=== PATIENT | female | born 1985 | race Caucasian/White ===

== ENCOUNTER 2016-10-31 10:39 | Emergency (ER) | payer OTHER | END 2016-10-31 12:46 | disposition home or self-care (01) | DX: S46.911A Strain of unspecified muscle, fascia and tendon at shoulder and upper arm level, right arm, initial encounter (principal); W10.9XXA Fall (on) (from) unspecified stairs and steps, initial encounter ==

== ENCOUNTER 2016-11-27 15:22 | Outpatient (CLI) | payer OTHER | END 2016-11-27 15:23 | disposition home or self-care (01) | DX: S43.421A Sprain of right rotator cuff capsule, initial encounter (principal); W01.0XXA Fall on same level from slipping, tripping and stumbling without subsequent striking against object, initial encounter ==

== ENCOUNTER 2017-05-27 21:29 | Emergency (ER) | payer OTHER ==
--- NOTE | 2017-05-27 22:15 | ED Physician Documentation ---
PD HPI SKIN - Stated complaint Stated Complaint: RED/SWOLLEN LT BREAST - Chief complaint Chief Complaint: General - History obtained from History obtained from: Patient - History of Present Illness Timing - onset: How many days ago (4) Timing - duration: Days Timing - details: Gradual onset, Still present (worse today) Location: Chest (left medial breast) Quality / character: Painful, Discolored (red), Swelling. 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 and gets clogged sweat glands leading to infections.) Review of Systems Constitutional: denies: Fever, Chills, Myalgias GI: denies: Nausea, Vomiting PD PAST MEDICAL HISTORY - Past Medical History Past Medical History: No - Past Surgical History Past Surgical History: Yes - Present Medications Home Medications: Ambulatory Orders Medication Instructions Recorded Confirmed Doxycycline Hyclate 100 mg PO BID #14 tablet 05/27/17 Ibuprofen [Motrin] 600 mg PO TID #20 tab 05/27/17 metFORMIN [Glucophage] 500 mg PO BID 05/27/17 05/27/17 - Allergies Allergies/Adverse Reactions: Allergies Allergy/AdvReac Type Severity Reaction Status Date / Time Penicillins Allergy Unknown Verified 05/27/17 21:41 Sulfa (Sulfonamide Allergy Unknown Verified 05/27/17 23:01 Antibiotics) - Social History Does the pt smoke?: No Smoking Status: Never smoker Does the pt drink ETOH?: No Does the pt have substance abuse?: No - Immunizations Immunizations are current?: Yes PD ED PE NORMAL - Vitals Vital signs reviewed: Yes - General General: Alert and oriented X 3, Well developed/nourished - Neck Neck: Supple, no meningeal sign, No adenopathy - Cardiac Cardiac: RRR, No murmur - Respiratory Respiratory: Clear bilaterally - Derm Derm: Other (left breast at medial edge of areola with focal area of induration , redness, swelling. Bedside U/S shows small fluid collection about 6 mm. ) Results - Vitals Vitals: Oxygen O2 Source Room air PD MEDICAL DECISION MAKING - ED course Complexity details: considered differential (bedside U/S showed 6 mm fluid collection but I&D produced only about 2-3 drops of bloody/pus. ), d/w patient Departure - Departure Disposition: Home, Self Care Clinical Impression: Breast abscess Condition: Stable Record reviewed to determine appropriate education?: Yes Instructions: ED Abscess IandD Follow-Up: SOTO VERA [Primary Care Provider] - Prescriptions: Doxycycline Hyclate 100 mg PO BID #14 tablet Ibuprofen [Motrin] 600 mg PO TID #20 tab Comments: Warm moist compresses to the area several times a day. Allow to drain and cover with gauze. Doxycycline twice a day for a week for the infection. Ibuprofen 3 times a day as needed for pain. Follow-up with your primary care if not improved over the next few days. Discharge Date/Time: 05/27/17 23:01
[2017-05-27] MEDS ORDERED: IBUPROFEN 600 MG TABLET PO STA (22:35)
[2017-05-27] MEDS ORDERED: SULFAMETH/TRIMETH DS 800/160 MG TABLET PO STA (22:35)
[2017-05-27] MEDS ORDERED: SULFAMETH/TRIMETH DS 800/160 MG TABLET PO ONE (22:41)
[2017-05-27] MEDS ORDERED: IBUPROFEN 600 MG TABLET PO ONE (22:41)
[2017-05-27] MEDS ORDERED: DOXYCYCLINE 100 MG TABLET PO STA (22:52)
[2017-05-27] MEDS ORDERED: DOXYCYCLINE 100 MG TABLET PO ONE (22:57)
[2017-05-27 23:02] VITALS: BP 133/76
== END 2017-05-27 23:01 | disposition home or self-care (01) ==
LOC: ED 21:29
DX: N61.1 Abscess of the breast and nipple (principal)
CPT/HCPCS: 10060; 99283; A9270

== ENCOUNTER 2018-02-16 10:18 | Emergency (ER) | payer OTHER ==
--- NOTE | 2018-02-16 11:37 | ED Physician Documentation ---
PD HPI OPHTHO - Stated complaint Stated Complaint: R EYE PX - Chief complaint Chief Complaint: Heent - History obtained from History obtained from: Patient - History of Present Illness Timing - onset: How many days ago (2-3) Timing - duration: Days (2-3) Timing - details: Gradual onset Location: Right Quality / character: Other (aching) Associated symptoms: Redness, Swelling (lower lid, with expanding redness the past day, down into the lower eyelid.) Contributing factors: No: Exposed to conjunctivitis, Recent URI, Wears contacts Similar symptoms before: Has not had sx before Recently seen: Not recently seen Review of Systems Constitutional: denies: Fever, Chills Eyes: reports: Irritation. denies: Loss of vision, Photophobia, Discharge Nose: denies: Rhinorrhea / runny nose, Congestion Throat: denies: Sore throat PD PAST MEDICAL HISTORY - Past Medical History Cardiovascular: None Respiratory: None Neuro: None HEENT: None - Past Surgical History Past Surgical History: Yes - Present Medications Home Medications: Ambulatory Orders Medication Instructions Recorded Confirmed Doxycycline Hyclate 100 mg PO BID #14 tablet 05/27/17 Ibuprofen [Motrin] 600 mg PO TID #20 tab 05/27/17 metFORMIN [Glucophage] 500 mg PO BID 05/27/17 05/27/17 Doxycycline Monohydrate 100 mg PO BID #14 tablet 02/16/18 Erythromycin Base [Erythromycin 1 applic OP QID #3.5 oint...g. 02/16/18 Ophthalmic Ointment] Naproxen 375 mg PO BID #20 tablet 02/16/18 - Allergies Allergies/Adverse Reactions: Allergies Allergy/AdvReac Type Severity Reaction Status Date / Time Penicillins Allergy Unknown Verified 02/16/18 10:27 Sulfa (Sulfonamide Allergy Unknown Verified 02/16/18 10:27 Antibiotics) - Social History Does the pt smoke?: No Smoking Status: Never smoker Does the pt drink ETOH?: No Does the pt have substance abuse?: No - Immunizations Immunizations are current?: Yes PD ED PE NORMAL - Vitals Vital signs reviewed: Yes - General General: Alert and oriented X 3, Well developed/nourished - HEENT HEENT: PERRL, EOMI, Other (right lower eyelid with focal redness and swelling without bump per se. Then redness and swelling of lower eyelid. No pain with motion of the eye. ) - Neck Neck: Supple, no meningeal sign, No adenopathy - Cardiac Cardiac: RRR, No murmur - Respiratory Respiratory: Clear bilaterally Results - Vitals Vitals: Oxygen O2 Source Room air PD MEDICAL DECISION MAKING - ED course Complexity details: considered differential (looks like stye with some facial cellulitis), d/w patient - Sepsis Event Vital Signs: Oxygen O2 Source Room air Departure - Departure Disposition: 01 Home, Self Care Clinical Impression: External hordeolum Qualifiers: Laterality: right Eyelid: lower Qualified Code(s): H00.012 - Hordeolum externum right lower eyelid Condition: Stable Record reviewed to determine appropriate education?: Yes Instructions: ED Hordeolum Follow-Up: SOTO VERA [Primary Care Provider] - Prescriptions: Doxycycline Monohydrate 100 mg PO BID #14 tablet Erythromycin Base [Erythromycin Ophthalmic Ointment] 1 applic OP QID #3.5 oint...g. Naproxen 375 mg PO BID #20 tablet Comments: Use the erythromycin I ointment 4 times a day for the next 2 or 3 days. Also doxycycline oral antibiotic to get the infection in the eyelid. Use naproxen or ibuprofen anti-inflammatory. Warm moist towels to the area a few times a day. Recheck if not improved over the next 2-3 days. Discharge Date/Time: 02/16/18 12:10
[2018-02-16 13:27] VITALS: BP 130/78
== END 2018-02-16 12:10 | disposition home or self-care (01) ==
LOC: ED 10:18
DX: H00.012 Hordeolum externum right lower eyelid (principal); L03.211 Cellulitis of face
CPT/HCPCS: 99283

== ENCOUNTER 2018-12-04 15:40 | Emergency (ER) | payer OTHER ==
--- NOTE | 2018-12-04 16:51 | ED Physician Documentation ---
PD HPI SKIN - Stated complaint Stated Complaint: ABSCESS ON TAILBONE - Chief complaint Chief Complaint: General - History obtained from History obtained from: Patient - History of Present Illness Timing - onset: How many days ago (4) Timing - duration: Days (4) Timing - details: Gradual onset, Still present Location: Back Quality / character: Painful, Discolored, Raised Associated symptoms: Joint pain. No: Fever, Myalgias Similar symptoms before: Diagnosis (abscess) Recently seen: Clinic - Additional information Additional information: 33-year-old female with a history of hidradenitis suprative has been placed on some Accutane and Humira for control of her symptoms and she is on Keflex as well. She has now developed a pointing abscess in the buttocks and she has an area on her back where the recent treatment has been done that is itching excessively and the skin around it is erythematous. She is seeing a [facility] on a regular basis she will be going to see the [employer] [employer] [facility] tomorrow regarding her medications and current flareups. She indicates that she is having some muscle stiffness that she believes is related to her Accutane. Review of Systems Constitutional: reports: Myalgias. denies: Fever, Chills Ears: denies: Ear pain Nose: denies: Congestion Throat: denies: Sore throat Cardiac: denies: Chest pain / pressure Respiratory: denies: Dyspnea, Cough GI: denies: Abdominal Pain, Nausea, Vomiting Skin: reports: Rash, Lesions Musculoskeletal: reports: Back pain. denies: Neck pain, Extremity pain PD PAST MEDICAL HISTORY - Past Medical History Cardiovascular: None Respiratory: None Neuro: None HEENT: None - Past Surgical History Past Surgical History: Yes - Present Medications Home Medications: Ambulatory Orders Medication Instructions Recorded Confirmed Adalimumab [Humira] 40 mg SQ 12/04/18 Cephalexin [Keflex] 500 mg PO BID 12/04/18 12/04/18 Fluconazole [Diflucan] 150 mg PO ONCE #1 tablet 12/04/18 Lidocaine/Pf/Norflur/Hfc 245Fa 10 mg MC 12/04/18 [Accucaine Kit] - Allergies Allergies/Adverse Reactions: Allergies Allergy/AdvReac Type Severity Reaction Status Date / Time Penicillins Allergy Unknown Verified 12/04/18 16:30 Sulfa (Sulfonamide Allergy Unknown Verified 12/04/18 16:30 Antibiotics) sulfamethoxazole Allergy Anaphylaxis Verified 12/04/18 16:30 [From Bactrim] trimethoprim [From Bactrim] Allergy Anaphylaxis Verified 12/04/18 16:30 - Social History Does the pt smoke?: No Smoking Status: Never smoker Does the pt drink ETOH?: No Does the pt have substance abuse?: No - Immunizations Immunizations are current?: Yes - POLST Patient has POLST: No PD ED PE NORMAL - Vitals Vital signs reviewed: Yes (hypertensive ) - General General: Alert and oriented X 3, No acute distress, Well developed/nourished - HEENT HEENT: Atraumatic, PERRL, EOMI - Respiratory Respiratory: No respiratory distress - Derm Derm: Normal color, Warm and dry, Other (There is an area on the central upper back that is erythematous and the skin is verigated. There is no drainage. There is another area over the upper portion of the buttocks crack that is pointing, erythematous, fluctuant and tender. ) - Extremities Extremities: No deformity, No edema - Neuro Neuro: Alert and oriented X 3, plaster maker 2-12 intact, No motor deficit, No sensory deficit, Normal speech Eye Opening: Spontaneous Motor: Obeys Commands Verbal: Oriented GCS Score: 15 - Psych Psych: Normal mood, Normal affect Results - Vitals Vitals: Vital Signs - 24 hr 12/04/18 12/04/18 15:44 17:33 Temperature 36.9 C 37.1 C Heart Rate 100 78 Respiratory 16 20 Rate Blood Pressure 140/81 H 128/73 O2 Saturation 100 99 Oxygen O2 Source Room air - Labs Labs: Microbiology 12/04/18 16:40 VANNA Preparation - Final Skin - Rash Procedures - Abscess I&D (location) buttocks crack Preparation: Betadine Incision: Needle aspiration, Purulent drainage, Culture obtained Other: Pt tolerated well, Dressing applied, Antibiotic prescribed PD MEDICAL DECISION MAKING - ED course Complexity details: reviewed old records, reviewed results, re-evaluated patient, considered differential, d/w patient ED course: 33-year-old female with a history of hidradenitis separative has developed another abscess on her tailbone and this is drained with use of a 18-gauge needle and a fair amount of pus is drained. The patient has appointment with her [facility] [employer] [facility] tomorrow she is currently on Keflex and culture has been obtained. The potassium hydroxide swab of the skin on the back that is variegated and erythematous is obtained to rule out yeast. The VANNA is + for yeast elements and the patient is prescribed diflucan 150mg once. Departure - Departure Disposition: 01 Home, Self Care Clinical Impression: Abscess, Yeast dermatitis Condition: Stable Instructions: ED Abscess IandD Follow-Up: SOTO VERA [Primary Care Provider] - Prescriptions: Fluconazole [Diflucan] 150 mg PO ONCE #1 tablet
[2018-12-04 17:33] VITALS: BP 128/73
== END 2018-12-04 17:57 | disposition home or self-care (01) ==
LOC: ED 15:40
DX: L02.31 Cutaneous abscess of buttock (principal); L30.8 Other specified dermatitis; B37.89 Other sites of candidiasis
CPT/HCPCS: 10060; 87070; 87205; 87220; 99283

== ENCOUNTER 2019-11-25 11:40 | Outpatient (CLI) | payer OTHER | END 2019-11-25 11:41 | disposition home or self-care (01) | LOC: COV 11:40 | PROVIDERS: ATTEND Family Medicine | DX: R05 Cough (principal); R50.9 Fever, unspecified | CPT/HCPCS: 81599 ==